=== PATIENT | female | born 1950 | race Caucasian/White ===

== ENCOUNTER 2022-01-25 14:37 | Outpatient (REF) | payer MEDICARE, SELFPAY ==
--- NOTE | ~2022-01-25 | XR_ITS ---
EXAMINATION: XR FINGER, RIGHT CLINICAL INFORMATION: Pain COMPARISON: None TECHNIQUE: Three views of the right thumb. XR/XR finger RT min 2V FINDINGS/IMPRESSION: Acute transversely oriented nondisplaced extra-articular fracture through the base of the first proximal phalanx. Mild degenerative changes of the first carpometacarpal and triscaphe joints. Dense calcification at the volar aspect of the first PIP joint may reflect sequelae of degenerative change. Soft tissues are unremarkable.
== END 2022-01-25 14:38 | disposition home or self-care (01) ==
LOC: HO.HOSX 14:37
PROVIDERS: PCP Internal Medicine; Visit Provider Physician Assistant
DX: S62.514A Nondisplaced fracture of proximal phalanx of right thumb, initial encounter for closed fracture (principal)
CPT/HCPCS: 73130; 73140; 99202

== ENCOUNTER 2022-01-26 13:46 | Outpatient (RCR) | payer MEDICARE, OTHER, SELFPAY ==
--- NOTE | 2022-01-26 15:13 | MHC.OT.DC ---
[address] [phone] F: [phone] Occupational Therapy Discharge Note Provider: Abigail Cortes PA-C Diagnosis: Right thumb PP non displaced fx due to a dog bite Date of Surgery: Date of Evaluation: 01/26/22 Date of Discharge: 01/26/22 Treatments to Date: 1 Cancellations to Date: No Shows to Date: Discharge Status: Achieved Goals Discharge Summary: See manuel. Fabricated a right hand based TS to thumb tip Pt indep donning and doffing TS . Pt to follow up with Orthopedics next wk Skilled OT not needed at this time Electronically Signed By: Marta Browne OT CHT CLT Reviewed/agree with student documentation: N/A Therapist: Please Sign and return to therapist, thank you for your referral.
== END 2022-01-26 15:14 | disposition home or self-care (01) ==
LOC: HO.OT 13:46
PROVIDERS: PCP Internal Medicine; Visit Provider Physician Assistant
DX: S61.011D Laceration without foreign body of right thumb without damage to nail, subsequent encounter (principal)
CPT/HCPCS: 29130; 97165; 97760

== ENCOUNTER → 2022-02-03 11:07 | Outpatient (BNVA) | payer MEDICARE, SELFPAY | PROVIDERS: PCP Internal Medicine; Visit Provider Physician Assistant | DX: S62.514D Nondisplaced fracture of proximal phalanx of right thumb, subsequent encounter for fracture with routine healing (principal) | CPT/HCPCS: 99212 ==

== ENCOUNTER 2022-02-15 07:15 | Outpatient (REF) | payer MEDICARE, SELFPAY ==
--- NOTE | ~2022-02-15 | XR_ITS ---
EXAMINATION: XR HAND, RIGHT CLINICAL INFORMATION: Right hand pain, COMPARISON: None TECHNIQUE: PA, lateral, and oblique views of the right hand. FINDINGS: There is diffuse osteopenia. There is no visible fracture, dislocation or subluxation. Mild loss of PIP, DIP, radioulnar, carpal joint space is noted.. XR/XR hand RT min 3V IMPRESSION: Mild degenerative arthritis. No visible acute fracture or dislocation. Diffuse osteopenia.
== END 2022-02-15 07:16 | disposition home or self-care (01) ==
LOC: HO.HOSX 07:15
PROVIDERS: Visit Provider Physician Assistant
DX: S62.51 Fracture of proximal phalanx of thumb (principal)
CPT/HCPCS: 73130; 99212

== ENCOUNTER 2022-03-15 07:44 | Outpatient (REF) | payer MEDICARE, SELFPAY ==
--- NOTE | ~2022-03-15 | XR_ITS ---
EXAMINATION: XR HAND, RIGHT CLINICAL INFORMATION: Hand pain. COMPARISON: 02/15/2022 TECHNIQUE: PA, lateral, and oblique views of the right hand. FINDINGS: There is marked osteopenia of visualized bones. There is mild soft tissue prominence seen about the 1st metacarpophalangeal joint. There is a small cortical defect present about the base of the 1st proximal phalanx with a sclerotic line consistent with healing or healed fracture. No acute fracture is appreciated. No erosive changes are appreciated. XR/XR hand RT min 3V IMPRESSION: Healing fracture base of the 1st proximal phalanx. Diffuse osteopenia.
== END 2022-03-15 07:45 | disposition home or self-care (01) ==
LOC: HO.HOSX 07:44
PROVIDERS: Visit Provider Physician Assistant
DX: S62.501D Fracture of unspecified phalanx of right thumb, subsequent encounter for fracture with routine healing (principal)
CPT/HCPCS: 73130; 99212

== ENCOUNTER 2022-04-11 07:16 | Outpatient (REF) | payer MEDICARE, SELFPAY | END 2022-04-11 07:17 | disposition home or self-care (01) | LOC: HO.HOSX 07:16 | PROVIDERS: Visit Provider Physician Assistant | DX: Z13.89 Encounter for screening for other disorder (principal) ==